=== PATIENT | female | born 1940 ===

== ENCOUNTER → 2017-07-10 | Outpatient (CLI) | payer MEDICARE, MEDICAID ==
[~2017-07-10] MED LIST: AMLO-511 PO; FENO160T6 PO; LIRA0.6P2 SQ; LOSA50TA37 PO; METF10002 PO; MILK175T PO; MIRA50TA PO; MULT1TAB70 PO; PRAV40TA4 PO; SERT100T12 PO
[2017-07-10 12:44] LABS: BASOPHILS % (AUTO) 0.3 % (0.0-2.0); EOSINOPHILS % (AUTO) 2.4 % (1.0-6.0); HEMATOCRIT 35.8 % (36-46); HEMOGLOBIN 12.2 g/dL (12.0-16.0); LYMPHOCYTES # (AUTO) 1.4 K/uL (1.0-4.8); LYMPHOCYTES % (AUTO) 23.4 % (22.0-44.0); MEAN CORPUSCULAR HEMOGLOBIN 32.2 pg (26.0-34.0); MEAN CORPUSCULAR HGB CONC 34.1 G/dL (31.0-37.0); MEAN CORPUSCULAR VOLUME 94 fL (80-100); MONOCYTES # (AUTO) 0.5 K/uL (0.1-1.0); MONOCYTES % (AUTO) 8.6 % (2.0-9.0); NEUTROPHILS # (AUTO) 3.9 K/uL (1.8-7.7); NEUTROPHILS % (AUTO) 65.3 % (40.0-70.0); PLATELET COUNT (AUTO) 196 K/uL (150-450); RED BLOOD CELL COUNT(AUTO) 3.79 MIL/uL (4.00-5.20); RED CELL DISTRIBUTION WIDTH 13.4 % (11.5-14.5)
[2017-07-10 13:17] LABS: ALANINE AMINOTRANSFERASE 40 U/L (12-78); ALBUMIN 3.6 g/dL (3.4-5.0); ALKALINE PHOSPHATASE 87 U/L (46-116); ANION GAP 8 mmol/L (8-16); ASPARTATE AMINOTRANSFERASE 40 U/L (15-37); BILIRUBIN,TOTAL 0.5 mg/dL (0.1-1.0); CALCIUM, TOTAL 9.4 mg/dL (8.8-10.5); CARBON DIOXIDE 27 mmol/L (22-29); CHLORIDE 104 mmol/L (98-107); CHOLESTEROL 148 mg/dL (131-200); CREATININE 0.77 mg/dL (0.60-1.30); GLOMERULAR FILTR. RATE CALC > 60 mL/min (>60); GLUCOSE,RANDOM 169 mg/dL (70-110); HDL CHOLESTEROL 49 mg/dL (40-60); LDL CHOL (CALC.) 58 mg/dL (0-130); POTASSIUM 4.4 mmol/L (3.5-5.1); SODIUM SERUM 139 mmol/L (136-145); THYROID STIMULATING HORMONE 1.54 uIU/mL (0.36-3.74); TOTAL PROTEIN, SERUM 8.2 g/dL (6.4-8.2); TRIGLYCERIDES 206 mg/dL (15-150); UREA NITROGEN, BLOOD 18 mg/dL (7-18)
== END | disposition home or self-care (01) ==
LOC: LABPV 12:03
PROVIDERS: ATTEND Internal Medicine Cardiovascular Disease
DX: I11.9 Hypertensive heart disease without heart failure (principal); E11.9 Type 2 diabetes mellitus without complications; E78.5 Hyperlipidemia, unspecified; F32.9 Major depressive disorder, single episode, unspecified; N32.81 Overactive bladder; Z95.0 Presence of cardiac pacemaker
CPT/HCPCS: 84443

== ENCOUNTER → 2017-07-10 | Outpatient (CLI) | payer MEDICARE, OTHER ==
[~2017-07-10] VITALS: Ht 160 cm; Wt 71.0 kg
[2017-07-10 10:26] VITALS: BP 155/70
== END | disposition home or self-care (01) ==
LOC: SRCNTR 10:10
PROVIDERS: ATTEND Internal Medicine Cardiovascular Disease
DX: I11.9 Hypertensive heart disease without heart failure (principal); E78.5 Hyperlipidemia, unspecified; E11.9 Type 2 diabetes mellitus without complications; F32.9 Major depressive disorder, single episode, unspecified; Z95.1 Presence of aortocoronary bypass graft
CPT/HCPCS: G0463

== ENCOUNTER → 2017-10-02 | Outpatient (CLI) | payer MEDICARE, OTHER ==
[~2017-10-02] VITALS: Ht 160 cm; Wt 73.0 kg
[~2017-10-02] MED LIST changes: -METF10002 PO; +METF10004 PO
[2017-10-02 12:11] VITALS: BP 158/67
== END | disposition home or self-care (01) ==
LOC: SRCNTR 11:33
PROVIDERS: ATTEND Internal Medicine Cardiovascular Disease
DX: I11.0 Hypertensive heart disease with heart failure (principal); E11.22 Type 2 diabetes mellitus with diabetic chronic kidney disease; E78.5 Hyperlipidemia, unspecified; N32.89 Other specified disorders of bladder; F32.9 Major depressive disorder, single episode, unspecified; Z95.0 Presence of cardiac pacemaker
CPT/HCPCS: G0463

== ENCOUNTER → 2017-11-24 | Outpatient (CLI) | payer MEDICARE, OTHER ==
[~2017-11-24] VITALS: Ht 160 cm; Wt 73.0 kg
[2017-11-24 10:37] VITALS: BP 157/68
== END | disposition home or self-care (01) ==
LOC: SRCNTR 10:18
PROVIDERS: ATTEND Internal Medicine Cardiovascular Disease
DX: I11.9 Hypertensive heart disease without heart failure (principal); I48.91 Unspecified atrial fibrillation; I48.92 Unspecified atrial flutter; E11.9 Type 2 diabetes mellitus without complications; E78.5 Hyperlipidemia, unspecified; E87.5 Hyperkalemia
CPT/HCPCS: G0463